=== PATIENT | male | born 1995 | race Two or more races ===

== ENCOUNTER 2019-12-15 11:47 | Emergency (ER) | payer OTHER ==
--- NOTE | 2019-12-15 13:00 | XRAY Report ---
PROCEDURE: Chest 2 View X-Ray INDICATIONS: cough, wheezing TECHNIQUE: 2 view(s) of the chest. COMPARISON: None. FINDINGS: Surgical changes and devices: None. Lungs and pleura: No pleural effusions or pneumothorax. Lungs are clear. Mediastinum: Mediastinal contours are normal. Heart size is normal. Bones and chest wall: No suspicious bony abnormalities. Soft tissues appear unremarkable. IMPRESSION: Unremarkable chest plain films, without focal infiltrates. If there is strong clinical concern for a developing or new pulmonary process, please consider a shor t-term follow-up 2 view chest series, performed in deep inspiration. Reviewed by: Liu Abdullahi MD on 12/15/2019 11:59 AM MICHEAL Approved by: Liu Abdullahi MD on 12/15/2019 11:59 AM MIHCEAL Station ID: [id number]
--- NOTE | 2019-12-15 13:08 | ED Physician Documentation ---
PD HPI URI - Stated complaint Stated Complaint: COUGH/WHEEZING - Chief complaint Chief Complaint: Resp - History obtained from History obtained from: Patient - History of Present Illness Timing - onset: How many weeks ago (2) Timing duration: Weeks (2) Timing details: Gradual onset Pain level max: 0 Pain level now: 0 Associated symptoms: Nasal congestion, Rhinorrhea, Dry cough, Dyspnea (wheezing). No: Fever Improves by: Rest Worsened by: Activity, Breathing Recently seen: Not recently seen - Additional information Additional information: Patient states that he has noticed that he has wheezing at night. Does not seem to bother him during the day. Nothing makes it better or worse. No fevers. Has never used inhalers before. Does vape. Review of Systems Constitutional: denies: Fever GI: denies: Vomiting Skin: denies: Rash Musculoskeletal: denies: Neck pain, Back pain Neurologic: denies: Headache PD PAST MEDICAL HISTORY - Past Medical History Past Medical History: No - Past Surgical History Past Surgical History: No - Present Medications Home Medications: Ambulatory Orders Medication Instructions Recorded Confirmed Albuterol Sulf [Ventolin Hfa 1 - 2 puffs INH Q4HR PRN #1 inhaler 12/15/19 Inhaler] Cetirizine HCl [Zyrtec] 10 mg PO DAILY PRN #30 tablet 12/15/19 - Allergies Allergies/Adverse Reactions: Allergies Allergy/AdvReac Type Severity Reaction Status Date / Time No Known Drug Allergies Allergy Verified 12/15/19 11:58 - Living Situation Living Arrangement: reports: At home - Social History Does the pt have substance abuse?: No PD ED PE NORMAL - Vitals Vital signs reviewed: Yes - General General: Alert and oriented X 3, No acute distress, Well developed/nourished - HEENT HEENT: PERRL, Ears normal, Moist mucous membranes, Pharynx benign - Neck Neck: Supple, no meningeal sign, No adenopathy - Cardiac Cardiac: RRR - Respiratory Respiratory: No respiratory distress, Other (Mild wheeze bilaterally) - Abdomen Abdomen: Soft, Non tender, Non distended - Derm Derm: Warm and dry, No rash - Neuro Neuro: Alert and oriented X 3 - Psych Psych: Normal mood, Normal affect Results - Vitals Vitals: Vital Signs - 24 hr 12/15/19 11:58 Temperature 36.6 C Heart Rate 71 Respiratory 14 Rate Blood Pressure 121/81 H O2 Saturation 97 Oxygen O2 Source Room air - Rads (name of study) Chest x-ray Radiology: Prelim report reviewed, EMP read contemporaneously, See rad report (No acute disease) PD MEDICAL DECISION MAKING - ED course Complexity details: reviewed results, re-evaluated patient, considered differential, d/w patient ED course: Patient is well-appearing, nontoxic. Afebrile. Appears to have likely seasonal/environmental allergies. Possible URI. Will prescribe Zyrtec and an inhaler for home. He was placed on albuterol. Teaching was done with the spacer. No acute findings on x-ray. Patient counseled regarding signs and symptoms for which I believe and urgent re-evaluation would be necessary. Patient with good understanding of and agreement to plan and is comfortable going home at this time This document was made in part using voice recognition software. While efforts are made to proofread this document, sound alike and grammatical errors may occur. Departure - Departure Disposition: 01 Home, Self Care Clinical Impression: Wheezing, Environmental allergies Condition: Good Instructions: ED Allergy Seasonal Follow-Up: your,doctor in 1 week [Other] Prescriptions: Albuterol Sulf [Ventolin Hfa Inhaler] 1 - 2 puffs INH Q4HR PRN #1 inhaler PRN Reason: Shortness Of Air/Wheezing Cetirizine HCl [Zyrtec] 10 mg PO DAILY PRN #30 tablet PRN Reason: Allergy Symptoms Comments: Use the albuterol as needed. Start on Zyrtec daily. Follow-up with your doctor within 1 week for repeat evaluation. Your x-ray does not show any acute abnormalities today.
[2019-12-15] MEDS ORDERED: ALBUTEROL 1 PUFF INH STA (13:14)
[2019-12-15 13:26] VITALS: BP 131/82
== END 2019-12-15 13:42 | disposition home or self-care (01) ==
LOC: ED 11:47
DX: J30.2 Other seasonal allergic rhinitis (principal)
CPT/HCPCS: 71046; 94640; 99283; 99284